=== PATIENT | female | born 1965 | race Caucasian/White ===

== ENCOUNTER 2017-06-07 07:35 | Emergency (ER) | payer OTHER ==
[~2017-06-07] VITALS: Ht 165.1 cm; Wt 130.2 kg
[~2017-06-07 07:35] MED LIST: ADVAIR 250-501 EACH IH; FLOMAX PO; PERCOCET 5-3251 EACH PO; ZOFRAN ODT4 MG PO
[2017-06-07] MEDS ORDERED: LAMICTAL100 MG PO (07:53)
[2017-06-07] MEDS ORDERED: ELIQUIS2.5 MG PO (07:53)
[2017-06-07] MEDS ORDERED: LOSARTAN-HCTZ1 EAC2 PO (07:53)
[2017-06-07] MEDS ORDERED: PROTONIX40 M2 PO (07:54)
[2017-06-07] MEDS ORDERED: MEDROLDOSEPACK PO (07:54)
[2017-06-07] MEDS ORDERED: CARAFATE 1 GM TA1 G1 PO (07:54)
[2017-06-07] MEDS ORDERED: REGLAN 10 MG TA10 MG PO (07:55)
[2017-06-07] MEDS ORDERED: POTASSIUM20 PO (07:55)
[2017-06-07] MEDS ORDERED: ZOLOFT50 MG PO (07:55)
[2017-06-07] MEDS ORDERED: VENTOLIN HFA 1818 GM INH (07:56)
[2017-06-07] MEDS ORDERED: ASPIR 8181 MG PO (07:56)
[2017-06-07] MEDS ORDERED: HYDROXYCHLOROQ200 M1 PO (08:00)
[2017-06-07 08:28] LABS: ABSOLUTE EOSINOPHILS 0.2 thou/uL (0.0-0.7); ABSOLUTE LYMPHOCYTES 1.1 thou/uL (0.8-5.3); ABSOLUTE MONOCYTES 0.5 thou/uL (0.0-1.2); ABSOLUTE NEUTROPHILS 3.4 thou/uL (1.6-8.1); BASOPHILS 0.9 %; EOSINOPHILS 4.5 %; HEMATOCRIT 43.1 % (37.0-47.0); HEMOGLOBIN 14.6 gm/dL (12.0-15.0); LYMPHOCYTES 21.2 %; MCH 31.4 pg (26.0-34.0); MCHC 33.9 g/dL (28.0-37.0); MCV 92.8 fL (80.0-100.0); MONOCYTES 8.7 %; MPV 8.4 fl. (7.2-11.1); NUCLEATED RBCS 0 /100WBC; PLATELET COUNT* 184 thou/uL (150-400); POLYS 64.7 %; RBC 4.65 mil/uL (4.20-5.00); RDW-CV 13.7 % (10.5-14.5); WBC 5.2 thou/uL (4.0-11.0)
[2017-06-07 08:37] LABS: ANION GAP 8 mmol/L (7-16); BUN 17 mg/dL (7-18); CALCIUM 9.1 mg/dL (8.5-10.1); CHLORIDE 106 mmol/L (98-107); CO2 30 mmol/L (21-32); CREATININE 0.9 mg/dL (0.6-1.3); GLUCOSE 91 mg/dL (70-99); POTASSIUM 3.8 mmol/L (3.5-5.1); SODIUM 144 mmol/L (136-145)
[2017-06-07 08:49] LABS: ALBUMIN 3.8 g/dL (3.4-5.0); ALKALINE PHOSPHATASE 87 U/L (46-116); LIPASE 346 U/L (73-393); NT-PRO BRAIN NAT PEPTIDE 123 pg/mL (<300); SGOT 15 U/L (15-37); SGPT 37 U/L (30-65); TOTAL BILIRUBIN 0.6 mg/dL (<0.1-1.0); TOTAL PROTEIN 7.2 g/dL (6.4-8.2); TROPONIN-I LEVEL <0.06 ng/mL (<0.06)
--- NOTE | 2017-06-07 09:38 | EKG ---
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
[2017-06-07 09:58] VITALS: BP 152/97
== END 2017-06-07 09:58 | disposition home or self-care (01) ==
LOC: M.ERS 07:35
PROVIDERS: Emergency Medicine
DX: J40 Bronchitis, not specified as acute or chronic (principal); J45.909 Unspecified asthma, uncomplicated; I10 Essential (primary) hypertension; F32.9 Major depressive disorder, single episode, unspecified; F41.9 Anxiety disorder, unspecified; Z87.442 Personal history of urinary calculi; Z90.710 Acquired absence of both cervix and uterus; Z90.49 Acquired absence of other specified parts of digestive tract; Z88.1 Allergy status to other antibiotic agents; Z88.8 Allergy status to other drugs, medicaments and biological substances

== ENCOUNTER 2017-07-18 13:51 | Emergency (ER) | payer OTHER ==
[~2017-07-18] VITALS: Ht 165.1 cm; Wt 133.8 kg
[~2017-07-18 13:51] MED LIST changes: +ASPIR 8181 MG PO; +CARAFATE 1 GM TA1 G1 PO; +ELIQUIS2.5 MG PO; +HYDROXYCHLOROQ200 M1 PO; +LAMICTAL100 MG PO; +LOSARTAN-HCTZ1 EAC2 PO; +MEDROLDOSEPACK PO; +POTASSIUM20 PO; +PROTONIX40 M2 PO; +REGLAN 10 MG TA10 MG PO; +VENTOLIN HFA 1818 GM INH; +ZOLOFT50 MG PO
[2017-07-18 14:15] LABS: URINE BILIRUBIN NEGATIVE (Negative); URINE BLOOD TRACE (Negative); URINE CLARITY CLEAR; URINE COLOR YELLOW; URINE GLUCOSE-RANDOM NEGATIVE (Negative); URINE KETONES NEGATIVE (Negative); URINE LEUKOCYTES-REFLEX NEGATIVE (Negative); URINE NITRITE-REFLEX NEGATIVE (Negative); URINE PROTEIN NEGATIVE (Negative); URINE SPECIFIC GRAVITY 1.015 (1.005-1.030); URINE UROBILINOGEN 0.2 E.U./dl (0.2-1.0)
[2017-07-18 14:24] LABS: ABSOLUTE LYMPHOCYTES 0.6 thou/uL (0.8-5.3); HEMOGLOBIN 13.3 gm/dL (12.0-15.0); NUCLEATED RBCS 0 /100WBC
[2017-07-18 14:27] LABS: ABSOLUTE MONOCYTES 0.4 thou/uL (0.0-1.2); ABSOLUTE NEUTROPHILS 5.3 thou/uL (1.6-8.1); BASOPHILS 0.5 %; EOSINOPHILS 0.4 %; HEMATOCRIT 38.9 % (37.0-47.0); LYMPHOCYTES 9.9 %; MCH 32.2 pg (26.0-34.0); MCHC 34.3 g/dL (28.0-37.0); MCV 93.9 fL (80.0-100.0); MPV 8.3 fl. (7.2-11.1); PLATELET COUNT* 192 thou/uL (150-400); POLYS 83.2 %; RBC 4.14 mil/uL (4.20-5.00); RDW-CV 14.5 % (10.5-14.5); WBC 6.4 thou/uL (4.0-11.0)
[2017-07-18] MEDS ORDERED: [UNRECOGNIZED DRUG - REMARK] PO (14:28)
[2017-07-18 14:35] LABS: CALCIUM 9.6 mg/dL (8.5-10.1); CREATININE 0.9 mg/dL (0.6-1.3); POTASSIUM 4.1 mmol/L (3.5-5.1)
[2017-07-18 14:40] LABS: ALBUMIN 3.9 g/dL (3.4-5.0); TOTAL BILIRUBIN 0.4 mg/dL (<0.1-1.0); TOTAL PROTEIN 7.3 g/dL (6.4-8.2)
[2017-07-18 16:26] VITALS: BP 141/68
== END 2017-07-18 16:29 | disposition home or self-care (01) ==
LOC: M.ERS 13:51
PROVIDERS: Nurse Practitioner Family
DX: I82.592 Chronic embolism and thrombosis of other specified deep vein of left lower extremity (principal); I10 Essential (primary) hypertension; F41.9 Anxiety disorder, unspecified; F32.9 Major depressive disorder, single episode, unspecified; J45.909 Unspecified asthma, uncomplicated; Z88.8 Allergy status to other drugs, medicaments and biological substances; Z90.710 Acquired absence of both cervix and uterus; Z87.442 Personal history of urinary calculi; Z90.49 Acquired absence of other specified parts of digestive tract

== ENCOUNTER 2019-08-19 18:08 | Observation (INO) | payer OTHER ==
[~2019-08-19] VITALS: Ht 165.1 cm; Wt 156.9 kg
[~2019-08-19 18:08] MED LIST changes: +SERTRALINE HCL50 MG PO; -ZOLOFT50 MG PO; +[UNRECOGNIZED DRUG - REMARK] PO
[2019-08-19 18:24] VITALS: BP 119/44
[2019-08-19 18:42] LABS: ABSOLUTE EOSINOPHILS 0.2 thou/uL (0.0-0.7); ABSOLUTE LYMPHOCYTES 1.2 thou/uL (0.8-5.3); ABSOLUTE MONOCYTES 0.7 thou/uL (0.0-1.2); ABSOLUTE NEUTROPHILS 3.6 thou/uL (1.6-8.1); BASOPHILS 0.4 %; EOSINOPHILS 3.5 %; HEMATOCRIT 38.5 % (37.0-47.0); HEMOGLOBIN 13.4 gm/dL (12.0-15.0); LYMPHOCYTES 20.9 %; MCH 34.4 pg (26.0-34.0); MCHC 34.7 g/dL (28.0-37.0); MCV 99.2 fL (80.0-100.0); MONOCYTES 11.5 %; MPV 8.9 fl. (7.2-11.1); NUCLEATED RBCS 0 /100WBC; PLATELET COUNT* 239 thou/uL (150-400); POLYS 63.7 %; RBC 3.88 mil/uL (4.20-5.00); RDW-CV 16.9 % (10.5-14.5); WBC 5.7 thou/uL (4.0-11.0)
[2019-08-19 18:52] LABS: APTT 27.3 Seconds (25.0-31.3); CALCIUM 8.8 mg/dL (8.5-10.1); CREATININE 1.6 mg/dL (0.6-1.3); POTASSIUM 3.4 mmol/L (3.5-5.1); PROTIME 10.7 Seconds (9.20-11.50)
[2019-08-19 19:03] LABS: ALBUMIN 3.9 g/dL (3.4-5.0); TOTAL BILIRUBIN 0.7 mg/dL (<0.1-1.0); TOTAL PROTEIN 7.3 g/dL (6.4-8.2)
[2019-08-19 21:37] VITALS: BP 122/53
[2019-08-19 22:10] VITALS: BP 131/51
[2019-08-20] MEDS ORDERED: CLEOCIN HCL300 MG PO (01:33)
[2019-08-20] MEDS ORDERED: METHOTREXATE 22.5 M1 PO (01:34)
[2019-08-20] MEDS ORDERED: ONDANSETRON ODT4 MG PO (01:35)
[2019-08-20] MEDS ORDERED: CEFDINIR300 MG PO (01:36)
[2019-08-20] MEDS ORDERED: FOLIC ACID1 MG PO (01:37)
[2019-08-20] MEDS ORDERED: FEBUXOSTAT40 MG PO (01:38)
[2019-08-20] MEDS ORDERED: PROTONIX40 M4 PO (01:39)
[2019-08-20] MEDS ORDERED: GABAPENTIN600 M1 PO (01:40)
[2019-08-20] MEDS ORDERED: NEURONTIN300 MG PO (01:42)
[2019-08-20] MEDS ORDERED: HYDROCHLOROTHIA25 M2 PO (06:56)
[2019-08-20] MEDS ORDERED: TOPROL XL25 MG PO (06:58)
[2019-08-20 07:15] VITALS: BP 109/48
[2019-08-20] MEDS ORDERED: DILTIAZEM PO (07:23)
--- NOTE | 2019-08-20 10:41 | EKG ---
[place] [address] ELECTROCARDIOGRAM REPORT Name: JUANCHO RUDD Larissa Room: [address] IN .R.#: [id number] Admission: 08/19/19 Attend Phys: Emmanuel Sebastian, Discharge: Date of : 65 Date of Service: 08/19/191911 Report #: [id number] THIS REPORT FOR: //name// [facility] ED Test Date: 2019-08-19 Test Time: 19:12:55 Pat Name: JUANCHO RUDD Department: Room: [facility] Gender: F [employer]: FIDE : 1965 Requested By: Eusebio Loo Order Number: [id number] MD: Tapan Canseco Measurements Intervals [place] Rate: 73 P: 40 OK: 147 QRS: 37 QRSD: 95 T: 58 QT: 386 QTc: 426 Interpretive Statements Sinus rhythm Baseline wander in lead(s) V6 Compared to ECG 06/07/2017 08:07:09 No significant changes Electronically Signed On 08-20-2019 10:40:51 CDT by Tapan Canseco [email or web address] <ELECTRONICALLY SIGNED> By: Tapan Canseco MD, [facility] 08/20/19 1040 11 11 Tapan Canseco MD, [facility] /EPI
[2019-08-20 16:00] VITALS: BP 104/50
[2019-08-20 17:08] VITALS: BP 115/44
[2019-08-20 20:01] VITALS: BP 131/59
[2019-08-20 22:14] LABS: URINE BILIRUBIN NEGATIVE (Negative); URINE BLOOD TRACE (Negative); URINE CLARITY CLEAR; URINE COLOR YELLOW; URINE GLUCOSE-RANDOM NEGATIVE (Negative); URINE KETONES NEGATIVE (Negative); URINE LEUKOCYTES-REFLEX NEGATIVE (Negative); URINE NITRITE-REFLEX NEGATIVE (Negative); URINE PROTEIN NEGATIVE (Negative); URINE SPECIFIC GRAVITY >= 1.030 (1.005-1.030); URINE UROBILINOGEN 0.2 E.U./dl (0.2-1.0)
[2019-08-21 07:20] VITALS: BP 110/56
--- NOTE | 2019-08-21 11:03 | CON ---
[address] [address] CONSULTATION Name: BLAIREJUANCHO Larissa Room: [address] [place]#: [id number] Admission: 08/19/19 Attend Phys: Emmanuel Sebastian MD Discharge: Date of : 65 Report #: [id number] THIS REPORT FOR: //name// cc: PRITI Bradley family physician/PCP PRITI - Mirna family physician/PCP ~ THIS REPORT FOR: //name// CC: [facility] physician/PCP Emmanuel Sebastian DATE OF SERVICE: 08/20/2019 INFECTIOUS DISEASE CONSULTATION ATTENDING PHYSICIAN: Emmanuel Sebastian MD REASON FOR EVALUATION: Left lower extremity inflammatory eruption with superficial ulcers and abscesses. HISTORY OF PRESENT ILLNESS: Chart reviewed, patient examined. This is a 54-year-old woman, apparently with longstanding illness with recent diagnosis of systemic lupus erythematosus, who noted a painful inflammatory eruption involving the left pretibial site. This was associated with a superficial small bullous type lesions with an alternating with serosanguineous debris. She noted onset roughly 2 months ago. She had been evaluated on several occasions, was felt to be an infectious, was treated with doxycycline. She describes 2 courses followed up with clindamycin; however, continued to get worse. Admitted essentially difficult to walk. She has had some low-grade temperature elevations, some associated nausea. Denies any significant pulmonary or gastrointestinal related complaints other than some loose stools. She denies any particular exposure history. She is now aware of any antecedent injury. No travel. No yard work. No animal exposure. Evaluation was undertaken. Unremarkable CBC. Lactic acid 1.6. Chest x-ray, question mass, although CT did not confirm that. Plain film of the leg tib-fib showed no bony abnormality. Blood cultures are sterile thus far. Gram stain is pending, although Gram stain did show gram-negative rods. Ultrasound of the left lower extremity showed edema. No focal fluid collection. She is empirically started on therapy with ceftriaxone, vancomycin. ALLERGIES: PENICILLINS, WARFARIN, CIPROFLOXACIN, TAMIFLU, PRADAXA, XARELTO, PRASUGREL. CURRENT MEDICATIONS: Include diltiazem, ceftriaxone, sertraline, methylprednisolone, losartan, budesonide, pantoprazole, vancomycin, lamotrigine, apixaban, [place] [address] CONSULTATION Name: BLAIREJUANCHO Larissa Room: [address] Mee Vazquez#: [id number] Admission: 08/19/19 Attend Phys: Emmanuel Sebastian MD Discharge: Date of : 65 Report #: [id number] PAST MEDICAL HISTORY: As described above, now SLE, has a diagnosis of asthma, renal lithiasis, hypertension, depression, anxiety, history of deep venous thrombosis, asthma, plus hysterectomy, cholecystectomy. SOCIAL HISTORY: Nonsmoker, no ethanol, no illicit drug use. FAMILY HISTORY: Noncontributory. REVIEW OF SYSTEMS: As above. PHYSICAL EXAMINATION: GENERAL: Pleasant, alert, cooperative, in [id number] distress. She appears reasonably well nourished. VITAL SIGNS: Temperature 98.6, pulse 82, respirations 18, blood pressure 109/48. SKIN: Warm, dry, no rashes. HEENT: Normocephalic. Extraocular muscles intact. NECK: Supple. LUNGS: Clear to auscultation bilaterally. HEART: Regular rate and rhythm without murmur. ABDOMEN: Soft, nontender, nondistended. EXTREMITIES: Left lower extremity has really marked inflammatory changes. Two aspects to the inflammatory eruption, one is erythroderma type appearance. Secondly, has some superficial ulcerations appear to have some purulence vesicular in nature, exquisitely tender to touch. GENITOURINARY AND RECTAL: Deferred. LABORATORY DATA: As described above. COVID test was negative. CT of the chest with fatty infiltration of the liver. No acute process. Lactic acid 1.6. Electrolytes: Sodium 143, potassium 3.4, chloride 103, bicarbonate is 32, anion gap of 8, BUN and creatinine 21 and 1.6, glucose of 100. LFTs unremarkable. Albumin of 3.9, total protein 7.3, estimated GFR of 34. PT of 10.7, INR of 1.0. CBC: White count of 5.7, H and H 13.4 and 38.5. platelets are 239. Differential unremarkable. ASSESSMENT AND PLAN: Left lower extremity inflammatory eruption. It is interesting as her gram negatives on the Gram stain. We will adjust antimicrobial therapy. It may well have a dual etiology. I cannot exclude any infectious component given the severity of the pain would raise a question of autoimmune related as pyoderma along its spectrum. We will await culture results, at some point, may benefit from compression. Discussed with Dr. Gibson. <ELECTRONICALLY SIGNED> By: Dre Romero MD 08/21/19 1103 1548 1739Jomiranda Romeor MD /nt
[2019-08-21 15:49] VITALS: BP 129/59
[2019-08-21 19:18] VITALS: BP 142/70
[2019-08-22 08:18] VITALS: BP 131/66
[2019-08-22 16:00] VITALS: BP 133/63
[2019-08-22 20:30] VITALS: BP 120/50
[2019-08-23 09:38] VITALS: BP 125/69
[2019-08-23 10:47] LABS: ABSOLUTE EOSINOPHILS 0.2 thou/uL (0.0-0.7); ABSOLUTE LYMPHOCYTES 0.9 thou/uL (0.8-5.3); ABSOLUTE MONOCYTES 0.5 thou/uL (0.0-1.2); ABSOLUTE NEUTROPHILS 2.4 thou/uL (1.6-8.1); BASOPHILS 0.5 %; EOSINOPHILS 3.9 %; HEMATOCRIT 29.7 % (37.0-47.0); HEMOGLOBIN 10.2 gm/dL (12.0-15.0); LYMPHOCYTES 22.5 %; MCH 34.4 pg (26.0-34.0); MCHC 34.2 g/dL (28.0-37.0); MCV 100.5 fL (80.0-100.0); MONOCYTES 13.1 %; NUCLEATED RBCS 0 /100WBC; PLATELET COUNT* 154 thou/uL (150-400); RBC 2.95 mil/uL (4.20-5.00); RDW-CV 16.7 % (10.5-14.5)
[2019-08-23] MEDS ORDERED: BACTRIM DS TAB1 EACH PO (10:59)
[2019-08-23 11:06] LABS: CALCIUM 8.3 mg/dL (8.5-10.1); CREATININE 1.1 mg/dL (0.6-1.3); POTASSIUM 3.4 mmol/L (3.5-5.1); TOTAL BILIRUBIN 0.4 mg/dL (<0.1-1.0); TOTAL PROTEIN 5.7 g/dL (6.4-8.2)
[2019-08-23 11:28] VITALS: BP 125/69
--- NOTE | 2019-09-03 13:10 | CON ---
[address] [address] CONSULTATION Name: JUANCHO RUDD Room: [address] Mee Vazquez#: [id number] Admission: 08/19/19 Attend Phys: Emmanuel Sebastian MD Discharge: 08/23/19 Date of : 65 Report #: [id number] THIS REPORT FOR: //name// cc: PRITI - No family physician/PCP PRITI - No family physician/PCP ~ THIS REPORT FOR: //name// CC: [facility] physician/PCP Emmanuel Sebastian ADMISSION DIAGNOSIS: Cellulitis, left leg. HISTORY OF PRESENT ILLNESS: A 54-year-old female admitted with increased inflammation, redness, pain, swelling and drainage from left anterior leg of roughly 2 months' duration. She has been on 4 weeks of doxycycline in July, then took 1 week of cefdinir in early August. Yesterday, she started clindamycin due to PENICILLIN ALLERGY. She had a low-grade fever with some nausea and took oxycodone for pain. She is on parenteral vancomycin and ceftriaxone with good tolerance. Leg ultrasound negative for DVT. Left leg wound culture has Gram-negative rods on Gram stain. Culture pending. Blood cultures negative x 2. Past medical history is significant for lupus, rheumatoid arthritis and coagulopathy or anticoagulopathy. She is on methotrexate for the rheumatoid arthritis. She is minimally ambulatory with morbid obesity. PAST MEDICAL HISTORY: Asthma, hypertension, depression, anxiety, morbid obesity, rheumatoid arthritis, lupus (undetermined type), cholecystectomy, DVT x 3, kidney stone history. LABORATORY DATA: WBC 5.7, RBC 3.88, hemoglobin 13.4, hematocrit 38.5, platelets 239. BUN is 21, creatinine is 1.6. Albumin is 3.9. PHYSICAL EXAMINATION: Left lower leg has high-grade inflammation consistent with cellulitis. The cellulitis involves the anterior and lateral portion of the lower leg with multiple white papules consistent with. There is no subcutaneous wounds or signs of deep tissue infection or abscess. No wounds to the foot or ankle noted. Her feet are warm, can palpate pedal pulses due to the advanced edema. Toenails are dystrophic without paronychia. IMPRESSION: Cellulitis, left lower extremity, morbid obesity. PLAN: I discussed with Dr. Romero, will continue empiric antibiotics and await wound culture results. The left leg wounds were cleansed and dressed with Xeroform and covered with 4 x 4 and Kerlix gauze. [place] [address] CONSULTATION Name: JUANCHO RUDD Room: [address]#: [id number] Admission: 08/19/19 Attend Phys: Emmanuel Sebastian MD Discharge: 08/23/19 Date of : 65 Report #: [id number] compression, but that likes to acutely painful for that at this time. Based on clinical presentation, I favor cellulitis over an autoimmune reaction. <ELECTRONICALLY SIGNED> By: Terry Gibson DPM 09/03/19 1310 1512 1705Terry Gibson DPM /nt
--- NOTE | 2019-09-03 13:10 | CON ---
[address] [address] CONSULTATION Name: JUANCHO RUDD Room: [address] Mee Vazquez#: [id number] Admission: 08/19/19 Attend Phys: Emmanuel Sebastian MD Discharge: 08/23/19 Date of : 65 Report #: [id number] THIS REPORT FOR: //name// cc: PRITI - No family physician/PCP PRITI - No family physician/PCP ~ THIS REPORT FOR: //name// CC: [facility] physician/PCP Emmanuel Sebastian DATE OF SERVICE: 08/21/2019 CHIEF COMPLAINT/HISTORY OF PRESENT ILLNESS: Followup of cellulitis to left lower extremity complicated by venous insufficiency/lymphedema. Wound culture shows Gram-negative rods. She is on parenteral vancomycin and cefepime. Blood culture is negative x2. A 4-layer compression leg wrap was placed to the left lower extremity today by the wound nurse. She has a Tubigrip stockinette to the right leg. She relates decreased appetite and slight nausea. She has been afebrile with stable vitals. No new labs for review. PHYSICAL EXAMINATION: Intact compression bandage to left lower extremity and Tubigrip stocking to the right; no bleed through; toes have immediate capillary refill; minimal tenderness with palpation to the left leg. IMPRESSION: Cellulitis, left lower extremity with lower extremity edema. PLAN: Await final culture results; continue compression therapy; no surgical debridement required. I had a discussion with the patient regarding long-term compression to the extremities. I think she would benefit most from a wraparound type compression sleeve since she has a large edematous leg and limited mobility. She would not be able to apply a pullover compression stocking. <ELECTRONICALLY SIGNED> By: Terry Gibson DPM 09/03/19 1310 1841 2156Terry Gibson DPM /nt
--- NOTE | 2019-09-03 13:10 | CON ---
[address] [address] CONSULTATION Name: JUANCHO RUDD Room: [address] Mee Vzaquez#: [id number] Admission: 08/19/19 Attend Phys: Emmanuel Sebastian MD Discharge: 08/23/19 Date of : 65 Report #: [id number] THIS REPORT FOR: //name// cc: PRITI - Mirna family physician/PCP PRITI - No family physician/PCP ~ THIS REPORT FOR: //name// CC: [facility] physician/PCP Emmanuel Sebastian DATE OF SERVICE: 08/22/2019 CHIEF COMPLAINT: Followup of right lower extremity cellulitis with ulceration. HISTORY OF PRESENT ILLNESS: Wound cultures grew Enterobacter cloacae and Enterococcus species. She is on parenteral cefepime and vancomycin with good tolerance. Anticipated discharge on p.o. antibiotics per Infectious Disease. No new labs for review. ASSESSMENT: Type 2 diabetes, venous insufficiency, left lower leg cellulitis with ulceration and soft tissue infection. PLAN: The patient to maintain the left below knee compression bandage as well as the Tubigrip stocking to the right leg. I will follow up with her next Sunday afternoon at [facility]. <ELECTRONICALLY SIGNED> By: Terry Gibson DPM 09/03/19 1310 1233 1247Terry Gibson DPM /izabella
== END 2019-08-23 13:20 | disposition home or self-care (01) ==
LOC: M.ERS 18:08 → M.ORTHSURG 20:44 → M.TBA-ER 20:44 → M.ORTHSURG 20:44
PROVIDERS: Family Medicine; Nurse Practitioner; ADMIT Internal Medicine; ATTEND Internal Medicine
DX: L03.116 Cellulitis of left lower limb (principal); J45.909 Unspecified asthma, uncomplicated; M06.9 Rheumatoid arthritis, unspecified; G47.33 Obstructive sleep apnea (adult) (pediatric); F41.8 Other specified anxiety disorders; E66.01 Morbid (severe) obesity due to excess calories; Z68.43 Body mass index [BMI] 50.0-59.9, adult

== ENCOUNTER → 2019-08-27 | Outpatient (CLI) | payer OTHER ==
[~2019-08-27] MED LIST changes: +BACTRIM DS TAB1 EACH PO; +CEFDINIR300 MG PO; +CLEOCIN HCL300 MG PO; +DILTIAZEM PO; +FEBUXOSTAT40 MG PO; +FOLIC ACID1 MG PO; +GABAPENTIN600 M1 PO; +HYDROCHLOROTHIA25 M2 PO; +METHOTREXATE 22.5 M1 PO; +NEURONTIN300 MG PO; +ONDANSETRON ODT4 MG PO; +PROTONIX40 M4 PO; +TOPROL XL25 MG PO
== END ==
LOC: M.WC 08-22 10:00
PROVIDERS: ATTEND Podiatrist Foot & Ankle Surgery
DX: E11.622 Type 2 diabetes mellitus with other skin ulcer (principal); L97.821 Non-pressure chronic ulcer of other part of left lower leg limited to breakdown of skin; L03.116 Cellulitis of left lower limb; E11.51 Type 2 diabetes mellitus with diabetic peripheral angiopathy without gangrene; E66.01 Morbid (severe) obesity due to excess calories; I87.2 Venous insufficiency (chronic) (peripheral); I89.0 Lymphedema, not elsewhere classified; I10 Essential (primary) hypertension; J45.909 Unspecified asthma, uncomplicated; K21.9 Gastro-esophageal reflux disease without esophagitis; M32.9 Systemic lupus erythematosus, unspecified; M06.9 Rheumatoid arthritis, unspecified; F32.9 Major depressive disorder, single episode, unspecified; F41.9 Anxiety disorder, unspecified; Z68.43 Body mass index [BMI] 50.0-59.9, adult; Z87.891 Personal history of nicotine dependence

== ENCOUNTER → 2019-09-03 | Outpatient (CLI) | payer OTHER | LOC: M.WC 05:00 | PROVIDERS: ATTEND Podiatrist Foot & Ankle Surgery | DX: L97.828 Non-pressure chronic ulcer of other part of left lower leg with other specified severity (principal); L03.116 Cellulitis of left lower limb; I89.0 Lymphedema, not elsewhere classified; E66.01 Morbid (severe) obesity due to excess calories; I87.2 Venous insufficiency (chronic) (peripheral); I10 Essential (primary) hypertension; I73.9 Peripheral vascular disease, unspecified; J45.909 Unspecified asthma, uncomplicated; K21.9 Gastro-esophageal reflux disease without esophagitis; M32.9 Systemic lupus erythematosus, unspecified; M06.9 Rheumatoid arthritis, unspecified; F32.9 Major depressive disorder, single episode, unspecified; F41.9 Anxiety disorder, unspecified; Z68.43 Body mass index [BMI] 50.0-59.9, adult; Z87.891 Personal history of nicotine dependence ==

== ENCOUNTER 2020-02-19 09:47 | Emergency (ER) | payer OTHER ==
[~2020-02-19] VITALS: Ht 165.1 cm; Wt 133.8 kg
[2020-02-19 11:09] LABS: HEMATOCRIT 39.5 % (37.0-47.0); HEMOGLOBIN 13.4 gm/dL (12.0-15.0); MCH 32.3 pg (26.0-34.0); MCHC 33.9 g/dL (28.0-37.0); MCV 95.4 fL (80.0-100.0); MPV 8.4 fl. (7.2-11.1); NUCLEATED RBCS 0 /100WBC; PLATELET COUNT* 181 thou/uL (150-400); RBC 4.14 mil/uL (4.20-5.00); WBC 7.1 thou/uL (4.0-11.0)
[2020-02-19 11:15] LABS: CALCIUM 9.5 mg/dL (8.5-10.1); CREATININE 1.1 mg/dL (0.6-1.3); POTASSIUM 3.5 mmol/L (3.5-5.1)
[2020-02-19 11:22] LABS: ALBUMIN 3.9 g/dL (3.4-5.0); TOTAL BILIRUBIN 0.5 mg/dL (<0.1-1.0)
[2020-02-19 11:41] LABS: ABSOLUTE LYMPHOCYTES 0.5 thou/uL (0.8-5.3); ABSOLUTE MONOCYTES 0.1 thou/uL (0.0-1.2); ABSOLUTE NEUTROPHILS 6.5 thou/uL (1.6-8.1); ANISOCYTOSIS 1+; PLATELET ESTIMATE ADEQUATE; POIKILOCYTOSIS 1+
[2020-02-19] MEDS ORDERED: HYDROCODON-ACE1 EAC7 PO (12:58)
[2020-02-19] MEDS ORDERED: DOXYCYCLINE 10100 M2 PO (12:58)
[2020-02-19 13:18] VITALS: BP 155/65
== END 2020-02-19 13:19 | disposition home or self-care (01) ==
LOC: M.ERS 09:47
PROVIDERS: Emergency Medicine Emergency Medical Services
DX: L03.115 Cellulitis of right lower limb (principal); J45.909 Unspecified asthma, uncomplicated; I10 Essential (primary) hypertension; Z90.49 Acquired absence of other specified parts of digestive tract; Z90.710 Acquired absence of both cervix and uterus; Z79.899 Other long term (current) drug therapy; Z88.0 Allergy status to penicillin; Z88.1 Allergy status to other antibiotic agents; Z88.8 Allergy status to other drugs, medicaments and biological substances

== ENCOUNTER 2020-03-27 11:07 | Emergency (ER) | payer OTHER ==
[~2020-03-27] VITALS: Ht 165.1 cm; Wt 134.3 kg
[~2020-03-27 11:07] MED LIST changes: +DOXYCYCLINE 10100 M2 PO; +HYDROCODON-ACE1 EAC7 PO
[2020-03-27] MEDS ORDERED: FUROSEMIDE 20 M20 MG PO (11:29)
[2020-03-27] MEDS ORDERED: METFORMIN HCL500 M3 PO (11:32)
[2020-03-27] MEDS ORDERED: TRIMETHOPRIM /P10 M1 OPHTHALMIC (13:16)
[2020-03-27] MEDS ORDERED: KEFLEX500 M1 PO (13:16)
[2020-03-27 13:35] VITALS: BP 106/44
== END 2020-03-27 13:37 | disposition home or self-care (01) ==
LOC: M.ERS 11:07
DX: H10.89 Other conjunctivitis (principal); A48.8 Other specified bacterial diseases; H57.12 Ocular pain, left eye; J45.909 Unspecified asthma, uncomplicated; I10 Essential (primary) hypertension; G62.9 Polyneuropathy, unspecified; Z88.1 Allergy status to other antibiotic agents; Z88.0 Allergy status to penicillin; Z88.8 Allergy status to other drugs, medicaments and biological substances; Z87.442 Personal history of urinary calculi; Z90.49 Acquired absence of other specified parts of digestive tract; Z90.710 Acquired absence of both cervix and uterus

== ENCOUNTER 2020-04-09 09:05 | Inpatient (IN) | payer OTHER ==
[~2020-04-09] VITALS: Ht 165.1 cm; Wt 141.1 kg
[~2020-04-09 09:05] MED LIST changes: +FUROSEMIDE 20 M20 MG PO; +KEFLEX500 M1 PO; +METFORMIN HCL500 M3 PO; -SERTRALINE HCL50 MG PO; +TRIMETHOPRIM /P10 M1 OPHTHALMIC; +ZOLOFT50 M1 PO
[2020-04-09 09:08] VITALS: BP 140/65
[2020-04-09 09:50] LABS: ABSOLUTE LYMPHOCYTES 0.6 thou/uL (0.8-5.3); ABSOLUTE MONOCYTES 0.8 thou/uL (0.0-1.2); ABSOLUTE NEUTROPHILS 7.4 thou/uL (1.6-8.1); BASOPHILS 0.5 %; EOSINOPHILS 0.1 %; HEMATOCRIT 38.9 % (37.0-47.0); HEMOGLOBIN 12.9 gm/dL (12.0-15.0); LYMPHOCYTES 7.2 %; MCH 32.5 pg (26.0-34.0); MCHC 33.1 g/dL (28.0-37.0); MCV 98.2 fL (80.0-100.0); MONOCYTES 9.3 %; MPV 8.3 fl. (7.2-11.1); NUCLEATED RBCS 0 /100WBC; PLATELET COUNT* 198 thou/uL (150-400); POLYS 82.9 %; RBC 3.97 mil/uL (4.20-5.00); RDW-CV 15.9 % (10.5-14.5); WBC 8.9 thou/uL (4.0-11.0)
[2020-04-09 09:58] LABS: CALCIUM 8.9 mg/dL (8.5-10.1); CREATININE 1.1 mg/dL (0.6-1.3); POTASSIUM 3.3 mmol/L (3.5-5.1)
[2020-04-09 10:02] LABS: APTT 25.3 Seconds (25.0-31.3); PROTIME 10.4 Seconds (9.20-11.50)
[2020-04-09 10:08] LABS: ALBUMIN 3.6 g/dL (3.4-5.0); MAGNESIUM 1.8 mg/dL (1.8-2.4); TOTAL BILIRUBIN 0.4 mg/dL (<0.1-1.0); TOTAL PROTEIN 6.6 g/dL (6.4-8.2)
[2020-04-09 14:35] VITALS: BP 145/75
[2020-04-09 15:01] VITALS: BP 151/78
--- NOTE | 2020-04-09 15:03 | EKG ---
[place] [address] ELECTROCARDIOGRAM REPORT Name: JUANCHO RUDD Room: [place] [address] [facility].#: [id number] Admission: 04/09/20 Attend Phys: Emmanuel Sebastian, Discharge: Date of : 65 Date of Service: 04/09/209[address] Report #: [id number] THIS REPORT FOR: //name// [facility] ED Test Date: 2020-04-09 Test Time: 09:14:40 Pat Name: JUANCHO RUDD Department: Room: [facility] Gender: F Information Technology Analyst: OPHELIA : 1965 Requested By: Augustin Flannery Order Number: [id number] MD: Tapan Canseco Measurements Intervals [place] Rate: 82 P: 71 OK: 144 QRS: 36 QRSD: 95 T: 27 QT: 367 QTc: 429 Interpretive Statements Sinus rhythm Compared to ECG 08/19/2019 19:12:55 No significant changes Electronically Signed On 04-09-2020 15:03:08 BRIM GREASER OPERATOR by Tapan Canseco [email or web address] <ELECTRONICALLY SIGNED> By: Tapan Canseco MD, [facility] 04/09/20 1503 0914 3 Tapan Canseco MD, [facility] /EPI
[2020-04-09 16:19] VITALS: BP 145/80
--- NOTE | 2020-04-09 20:18 | 2DMMODE ---
[place] [address] 2 D/M-MODE ECHOCARDIOGRAM Name: JUANCHO URDD Room: [address] IN [facility].#: [id number] Admission: 04/09/20 Attend Phys: Emmanuel Sebastian, Discharge: Date of : 65 Date of Service: 04/09/202016 Report #: [id number] THIS REPORT FOR: cc: Donald Meredith MD, Jason MD Blick, David R. MD [facility] ~ APPROVED REPORT Study performed: 04/09/2020 14:20:39 EXAM: Comprehensive 2D, Doppler, and color-flow Echocardiogram Patient Location: In-Patient Room #: er Status: routine BSA: 2.34 HR: 78 bpm BP: 139/75 mmHg Rhythm: NSR Other Information Study Quality: Good Indications CVA/TIA Echo Enhancing Agent Indication: Rule out Shunt Agent(s) / Amount(s) Used: Agitated Saline 10 cc 2D Dimensions IVSd: 10.65 (7-11mm) LVOT Diam: 20.04 (18-24mm) LVDd: 48.79 mm PWd: 10.02 (7-11mm) Ascending Ao: 28.02 (22-36mm) LVDs: 37.65 (25-40mm) Aortic Root: 29.86 mm Volumes Left Atrial Volume (Systole) LA ESV Index: 16.60 mL/m2 Aortic Valve AoV Peak Wilver.: 1.77 m/s AO Peak Gr.: 12.48 mmHg LVOT Max P.82 mmHg AO Mean Gr.: 6.91 mmHg LVOT Mean P.69 [place] [address] 2 D/M-MODE ECHOCARDIOGRAM Name: JUANCHO RUDD Room: [address] IN ..#: [id number] Admission: 04/09/20 Attend Phys: Emmanuel Sebastian, Discharge: Date of : 65 Date of Service: 04/09/202016 Report #: [id number] LVOT Max V: 1.40 m/s AO V2 VTI: 33.49 cm LVOT Mean V: 0.87 m/s ADRY (VTI): 2.61 cm2 LVOT V1 VTI: 27.73 cm Mitral Valve E/A Ratio: 1.17 MV Decel. Time: 207.19 ms MV E Max Wilver.: 0.92 m/s MV PHT: 60.09 ms MVA (PHT): 3.66 cm2 TDI E/Lateral E': 7.08 E/Medial E': 6.13 Medial E' Wilver.: 0.15 m/s Lateral E' Wilver.: 0.13 m/s Pulmonary Valve PV Peak Wilver.: 1.22 m/s PV Peak Gr.: 5.98 mmHg Tricuspid Valve RAP Estimate: 5.00 mmHg TR Peak Gr.: 26.35 mmHg RVSP: 31.00 mmHg PA Pressure: 31.00 mmHg Left Ventricle The left ventricle is normal size. There is normal LV segmental wall motion. There is normal left ventricular wall thickness. Left ventricular systolic function is normal. The left ventricular ejection fraction is within the normal range. LVEF is 55-60%. The left ventricular diastolic function is normal. Right Ventricle The right ventricle is normal size. The right ventricular systolic function is normal. Atria The left atrium size is normal. The interatrial septum is intact with no evidence for an atrial septal defect. The right atrium size is normal. Aortic Valve The aortic valve is normal in structure. No aortic regurgitation is present. There is no aortic valvular stenosis. Mitral Valve The mitral valve is normal in structure. Trace [place] [address] 2 D/M-MODE ECHOCARDIOGRAM Name: BLAIREJUANCHO Dias Room: [address] IN [facility]#: [id number] Admission: 04/09/20 Attend Phys: Emmanuel Sebastian, Discharge: Date of : 65 Date of Service: 04/09/202016 Report #: [id number] No evidence of mitral valve stenosis. Tricuspid Valve The tricuspid valve is normal in structure. Trace tricuspid regurgitation. Mild pulmonary hypertension. Pulmonic Valve Pulmonic valve is not well visualized. There is no pulmonic valvular regurgitation. Great Vessels The aortic root is normal in size. IVC is normal in size and collapses >50% with inspiration. Pericardium There is no pericardial effusion. <Conclusion> LVEF is 55-60%. The interatrial septum is intact with no evidence for an atrial septal defect. <ELECTRONICALLY SIGNED> By: Tapan Canseco MD, FACC 04/09/202016 16 16 Tapan Canseco MD, FACC /INF
[2020-04-09 20:30] VITALS: BP 113/74
[2020-04-10 00:16] VITALS: BP 128/77
[2020-04-10 05:13] LABS: HEMOGLOBIN 12.5 gm/dL (12.0-15.0); MCH 33.2 pg (26.0-34.0); MCHC 33.8 g/dL (28.0-37.0); MCV 98.2 fL (80.0-100.0); MPV 8.5 fl. (7.2-11.1); RBC 3.77 mil/uL (4.20-5.00); RDW-CV 16.1 % (10.5-14.5); WBC 5.8 thou/uL (4.0-11.0)
[2020-04-10 05:29] LABS: ALBUMIN 3.2 g/dL (3.4-5.0); ALKALINE PHOSPHATASE 71 U/L (46-116); ANION GAP 5 mmol/L (7-16); BUN 22 mg/dL (7-18); CALCIUM 8.9 mg/dL (8.5-10.1); CHLORIDE 107 mmol/L (98-107); CHOLESTEROL 193 mg/dL (<200); CO2 32 mmol/L (21-32); CREATININE 0.9 mg/dL (0.6-1.3); GLUCOSE 84 mg/dL (70-99); HDL CHOLESTEROL 79 mg/dL (>40); LDL CHOLESTEROL 88 mg/dL (<100); POTASSIUM 3.7 mmol/L (3.5-5.1); SGOT 15 U/L (15-37); SGPT 35 U/L (30-65); SODIUM 144 mmol/L (136-145); TC:HDL 2.4 Ratio (Not establshd); TOTAL BILIRUBIN 0.4 mg/dL (<0.1-1.0); TOTAL PROTEIN 5.8 g/dL (6.4-8.2); TRIGLYCERIDE 131 mg/dL (<150); VLDL 26 mg/dL (<40)
[2020-04-10 05:41] LABS: SERUM ASSESSMENT CLEAR
[2020-04-10 06:23] VITALS: BP 155/63
[2020-04-10 08:00] VITALS: BP 141/73
--- NOTE | 2020-04-10 11:01 | CON ---
[address] [address] CONSULTATION Name: BLAIREJUANCHO M Room: [place] [address] ADM IN M.R.#: [id number] Admission: 04/09/20 Attend Phys: Emmanuel Sebastian MD Discharge: Date of : 65 Report #: [id number] THIS REPORT FOR: cc: Donald Meredith MD, Jason MD ~ [place], Roxane S. DO NEUROLOGY CONSULT HISTORY OF PRESENT ILLNESS: The patient is a 55-year-old female who woke up this morning with a very intense headache. She does have a history of headaches, but has never had a headache like this. With this headache, which began at around 6:00 a.m. in the morning, she noticed difficulty concentrating, slurred speech, and eventually some right arm and leg symptoms. By 11:00 a.m. or noon, she was better. She states that actually as her daughter brought her from home to the hospital, she already felt herself getting better. Right at this moment, just after 4:00 p.m., she states that her headache is basically gone and she is feeling much better. She tells me that she already sees a neurologist. She sees Dr. Woods from [facility] and typically sees him every 3 months for neuropathic symptoms of the right hand and leg. I asked her if she had peripheral neuropathy, but she was uncertain. The patient also states that when the symptoms began, she began to feel chest discomfort. She called her family physician who told her to come to the Emergency Room. PAST MEDICAL HISTORY: Asthma, kidney stone formation, hypertension, depression, anxiety, blood clots, neuropathy, cellulitis in the lower extremities. PAST SURGICAL HISTORY: Hysterectomy, cholecystectomy. MEDICATIONS AT HOME: Eliquis 2.5 mg b.i.d., losartan and hydrochlorothiazide 100/12.5 mg 1 tablet daily, Plaquenil 200 mg b.i.d., furosemide 20 mg daily, metformin ER daily, Advair 250/50 b.i.d., lamotrigine 50 mg at bedtime, sertraline 100 mg daily, albuterol inhaler p.r.n., methotrexate 12.5 mg weekly, folic acid 1 mg daily, febuxostat 40 mg daily, Protonix 40 mg at bedtime, gabapentin 600 mg b.i.d., diltiazem 30 mg t.i.d. ALLERGIES: CEPHALEXIN, AMLODIPINE, AMOXICILLIN, CIPROFLOXACIN, CLAVULANIC ACID, PRADAXA, TAMIFLU, PENICILLIN, EFFIENT, XARELTO, WARFARIN, LISINOPRIL. PHYSICAL EXAMINATION: VITAL SIGNS: Temperature 36.3, pulse rate 72, respiratory rate 17, blood pressure 151/78, bedside pulse oximetry 98% [place] [address] CONSULTATION Name: JUANCHO RUDD Room: [place] [address] ADM IN ..#: [id number] Admission: 04/09/20 Attend Phys: Emmanuel Sebastian MD Discharge: Date of : 65 Report #: [id number] NEUROLOGIC: The patient is morbidly obese. Cranial nerves 2-12 are grossly intact. Motor exam demonstrates symmetrical strength in all 4 extremities with tone and bulk normal. Reflexes are trace throughout. Plantar responses are mute bilaterally. Coordination demonstrates no evidence of dysmetria. LABORATORY DATA: Hematology: White blood cell count 8.9, hemoglobin 12.9, hematocrit 38.9, MCV 98.2, platelet count 198,000. INR 1. Chemistry: Sodium 142, potassium 3.3, chloride 104, carbon dioxide 28, BUN 25, creatinine 1.1, GFR 52, glucose 121, calcium 8.9, magnesium 1.8. Liver functions normal. IMAGING STUDIES: Carotid ultrasound unremarkable. CT scan of the head, no evidence of acute intracranial hemorrhage or other acute intracranial abnormality. Chest x-ray, mild air trapping without evidence of pneumonia, pneumothorax or pleural effusion. IMPRESSION: Given this patient's history, she would be at risk for transient ischemic attack or stroke. An MRI of the head has been ordered as has an echocardiogram. The other possibility is a complicated migraine, in other words migraine with stroke-like features. The MRI will be important to determine if the stroke is present or if the patient has microvascular disease. Hemoglobin A1c and lipid profile are pending. The patient tells me that she has not been diagnosed with diabetes, but I see that she is on metformin 500 mg daily. In addition to the MRI, echocardiogram and lipid profile therapy has also been ordered for her. In the meantime, I would continue her current medications, which include Eliquis 2.5 mg b.i.d. and full strength aspirin. I thank you for your kind referral of the patient. <ELECTRONICALLY SIGNED> By: Marcella Boss DO 04/10/20 1101 1618 1748Marcella Boss DO /nt
[2020-04-10 12:00] VITALS: BP 140/68
[2020-04-10 15:29] VITALS: BP 141/73
[2020-04-11 02:05] LABS: GLYCOHEMOGLOBIN (HGB A1C) 5.2 % (4.8-5.6)
== END 2020-04-10 16:10 | disposition home or self-care (01) | DRG 103 ==
LOC: M.ERS 09:05 → M.TBA-ER 11:23 → M.2W 14:45
PROVIDERS: Emergency Medicine Emergency Medical Services; Internal Medicine; ADMIT Internal Medicine; ATTEND Internal Medicine
DX: G43.909 Migraine, unspecified, not intractable, without status migrainosus (principal); G45.9 Transient cerebral ischemic attack, unspecified; Z68.43 Body mass index [BMI] 50.0-59.9, adult; J45.909 Unspecified asthma, uncomplicated; E66.9 Obesity, unspecified; F41.9 Anxiety disorder, unspecified; F32.9 Major depressive disorder, single episode, unspecified; I10 Essential (primary) hypertension; M06.9 Rheumatoid arthritis, unspecified; G62.9 Polyneuropathy, unspecified; Z20.822 Contact with and (suspected) exposure to COVID-19; Z90.710 Acquired absence of both cervix and uterus; Z79.899 Other long term (current) drug therapy; Z87.442 Personal history of urinary calculi; Z90.49 Acquired absence of other specified parts of digestive tract; Z79.84 Long term (current) use of oral hypoglycemic drugs; Z88.1 Allergy status to other antibiotic agents; Z88.8 Allergy status to other drugs, medicaments and biological substances; Z88.0 Allergy status to penicillin

== ENCOUNTER 2020-10-16 16:32 | Emergency (ER) | payer OTHER ==
[~2020-10-16] VITALS: Ht 165.1 cm; Wt 140.6 kg
[2020-10-16] MEDS ORDERED: FLEXERIL PO (18:23)
[2020-10-16] MEDS ORDERED: PREDNISONE50 MG PO (18:23)
[2020-10-16] MEDS ORDERED: HYDROCODON-ACE1 EAC7 PO (18:23)
[2020-10-16 18:25] VITALS: BP 111/64
== END 2020-10-16 18:38 | disposition home or self-care (01) ==
LOC: M.ERS 16:32
DX: S06.0X0A Concussion without loss of consciousness, initial encounter (principal); Z20.822 Contact with and (suspected) exposure to COVID-19; B34.9 Viral infection, unspecified; M54.41 Lumbago with sciatica, right side; J45.909 Unspecified asthma, uncomplicated; I10 Essential (primary) hypertension; F32.9 Major depressive disorder, single episode, unspecified; F41.9 Anxiety disorder, unspecified; G62.9 Polyneuropathy, unspecified; Z87.442 Personal history of urinary calculi; Z90.49 Acquired absence of other specified parts of digestive tract; Z90.711 Acquired absence of uterus with remaining cervical stump; Z79.899 Other long term (current) drug therapy; Z88.1 Allergy status to other antibiotic agents; Z88.8 Allergy status to other drugs, medicaments and biological substances; Z88.0 Allergy status to penicillin; W22.8XXA Striking against or struck by other objects, initial encounter; Y93.89 Activity, other specified; Y92.89 Other specified places as the place of occurrence of the external cause; Y99.8 Other external cause status

== ENCOUNTER → 2020-11-09 | Outpatient (CLI) | payer OTHER ==
[~2020-11-09] MED LIST changes: +ASA81BEC PO; +CARDIZEM30 MG PO; +COZAAR100 MG PO; +CRESTOR5 MG PO; -ELIQUIS2.5 MG PO; +ELIQUIS5 MG PO; +FLEXERIL PO; -GABAPENTIN600 M1 PO; +HYOSCYAMINE0.125 MG PO; +LAMICTAL 25 MG25 MG PO; -LAMICTAL100 MG PO; +LOSARTAN POTAS100 MG PO; -LOSARTAN-HCTZ1 EAC2 PO; +LOSARTAN-HCTZ1 EAC3 PO; +METHYLPREDNISOLONE PO; +MUPIROCIN1 GM TOP; +NEURONTIN 300M300 M2 PO; +PREDNISONE50 MG PO; +PROTONIX 20 MG20 M1 PO; -PROTONIX40 M4 PO
== END ==
LOC: M.PC 10:34
PROVIDERS: ATTEND Anesthesiology Pain Medicine
DX: Z12.31 Encounter for screening mammogram for malignant neoplasm of breast (principal); M54.16 Radiculopathy, lumbar region; J45.909 Unspecified asthma, uncomplicated; I10 Essential (primary) hypertension; F32.9 Major depressive disorder, single episode, unspecified; F41.9 Anxiety disorder, unspecified; I74.9 Embolism and thrombosis of unspecified artery; D68.62 Lupus anticoagulant syndrome; I89.0 Lymphedema, not elsewhere classified; G62.9 Polyneuropathy, unspecified; L03.116 Cellulitis of left lower limb; L03.115 Cellulitis of right lower limb

== ENCOUNTER → 2020-12-10 | Outpatient (CLI) | payer OTHER | LOC: M.RAD 12:32 | DX: R05.9 Cough, unspecified (principal); Z86.16 Personal history of COVID-19 ==